=== PATIENT | male | born 1990 | race Caucasian/White ===

== ENCOUNTER 2020-03-15 04:01 | Emergency (ER) | payer OTHER ==
[~2020-03-15] VITALS: Ht 172.7 cm; Wt 101.0 kg
[2020-03-15 04:03] VITALS: BP 157/86
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
== END 2020-03-15 05:38 | disposition home or self-care (01) ==
LOC: ED 05:24
DX: S06.0X9A Concussion with loss of consciousness of unspecified duration, initial encounter (principal); X58.XXXA Exposure to other specified factors, initial encounter; Y93.89 Activity, other specified; Y92.89 Other specified places as the place of occurrence of the external cause; Y99.0 Civilian activity done for income or pay
CPT/HCPCS: 70450; 99284

== ENCOUNTER 2020-10-10 20:47 | Emergency (ER) | payer OTHER ==
[~2020-10-10] VITALS: Ht 172.7 cm; Wt 88.0 kg
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
--- NOTE | 2020-10-10 21:30 | NUR ---
REPORT TO MATT RN.
--- NOTE | 2020-10-10 21:31 | NUR ---
[facility] CARE OF PT, REPORT RECEIVED FROM ALEX REYES.
--- NOTE | 2020-10-10 22:27 | NUR ---
PT BACK FROM CT.
[2020-10-10] MEDS ORDERED: PROPARACAINE OPHTH 0.5%, 15ML LEFTEYE ONE (22:30)
--- NOTE | 2020-10-10 23:22 | NUR ---
PT SITTING UP ON GURNEY, WAITING FOR RESULTS OF CT. PT STATES PAIN IS TOLERABLE, NO CHANGE, VITALS NOTED W/ HYPERTENSION, STATES "I ALWAYS GET HIGH BLOOD PRESSURE IN THE HOSPITAL." AWARE.
[2020-10-10 23:49] VITALS: BP 169/87
--- NOTE | 2020-10-10 23:53 | NUR ---
PT STABLE FOR DISCHARGE. EDUCATION PROVIDED, VERBALIZES UNDERSTANDING. VITALS STABLE. AMBULATES W/ STEADY GAIT TO CHECK OUT WITH COWORKER.
== END 2020-10-10 23:53 | disposition home or self-care (01) ==
LOC: ED 21:40
DX: S02.2XXA Fracture of nasal bones, initial encounter for closed fracture (principal); S09.90XA Unspecified injury of head, initial encounter; R42 Dizziness and giddiness; R11.0 Nausea; Y04.8XXA Assault by other bodily force, initial encounter; Y93.89 Activity, other specified; Y92.69 Other specified industrial and construction area as the place of occurrence of the external cause; Y99.0 Civilian activity done for income or pay
CPT/HCPCS: 70450; 70486; 99285